=== PATIENT | female | born 1955 | race Caucasian/White ===

== ENCOUNTER 2017-05-19 23:34 | Inpatient (IN) | payer MEDICARE ==
--- NOTE | 2017-05-19 23:56 | ED ---
General Adult HPI - General Chief complaint: Shortness of Breath Stated complaint: SOB Time Seen by Provider: 05/19/17 23:42 Source: patient, EMS, RN notes reviewed, old records reviewed Mode of arrival: EMS Limitations: no limitations - History of Present Illness Initial comments: Patient is a pleasant 61-year-old female presenting to the emergency department as a transfer from [facility]. Patient originally presented for difficulty in breathing. Patient states symptoms have been present for quite a while however progressively getting worse. Patient did question if she was developing fever. Dyspnea does worsen with exertion. No black or bloody bowel movements. Patient has been fatigued. No chest pain. Patient was diagnosed with pneumonia. Patient transferred for higher level of care. - Related Data Home Medications Medication Instructions Recorded Confirmed ALPRAZolam [Xanax] 1 mg PO Q8HR 06/15/14 06/16/14 Atorvastatin [Lipitor] 20 mg PO DAILY 06/15/14 06/16/14 Canagliflozin [Invokana] 100 mg PO DAILY 06/15/14 06/16/14 Escitalopram [Lexapro] 20 mg PO DAILY 06/15/14 06/16/14 amLODIPine [Norvasc] 5 mg PO DAILY 06/15/14 06/16/14 metFORMIN HCL [Glucophage] 850 mg PO TID 06/15/14 06/16/14 Aspirin 325 mg PO DAILY 06/16/14 06/16/14 Calcium Polycarbophil [Fibercon] 1,250 mg PO TID 06/16/14 06/16/14 Fluticasone Propionate [Flonase 1 spray EA NOSTRIL DAILY 06/16/14 06/16/14 Allergy Relief] Previous Rx's Medication Instructions Recorded HYDROcodone/APAP 5-325MG [Berk[place] 2 each PO Q6HR PRN #30 tab 06/19/14 5-325] Allergies Allergy/AdvReac Type Severity Reaction Status Date / Time Penicillins Allergy Swelling Verified 06/16/14 12:39 Review of Systems ROS Statement: Those systems with pertinent positive or pertinent negative responses have been documented in the HPI. ROS Other: All systems not noted in ROS Statement are negative. Constitutional: Reports: fever Eyes: Denies: eye pain ENT: Denies: ear pain Respiratory: Reports: dyspnea Cardiovascular: Denies: chest pain Endocrine: Reports: fatigue Gastrointestinal: Denies: vomiting Genitourinary: Denies: hematuria Musculoskeletal: Denies: back pain Skin: Denies: rash Neurological: Denies: headache Past Medical History Past Medical History: Diabetes Mellitus, Hyperlipidemia, Hypertension, Skin Disorder, Sleep Apnea/CPAP/BIPAP Additional Past Medical History / Comment(s): Melanoma on back of leg History of Any Multi-Drug Resistant Organisms: None Reported Past Surgical History: Appendectomy, Bowel Resection, Hysterectomy Additional Past Surgical History / Comment(s): Melanoma removed back of leg Past Psychological History: Anxiety, Depression Smoking Status: Current every day smoker Past Alcohol Use History: None Reported Past Drug Use History: None Reported - Past Family History Father Family Medical History: Cancer, Diabetes Mellitus, Hypertension Additional Family Medical History / Comment(s): Pancreatic Cancer, Sister(s) Additional Family Medical History / Comment(s): [place] at 60 General Exam Limitations: no limitations General appearance: alert, in no apparent distress Head exam: Present: atraumatic Eye exam: Present: normal appearance, PERRL ENT exam: Present: normal oropharynx Neck exam: Present: normal inspection Respiratory exam: Present: rales Cardiovascular Exam: Present: regular rate, normal rhythm GI/Abdominal exam: Present: soft. Absent: tenderness Extremities exam: Present: normal inspection Neurological exam: Present: alert Psychiatric exam: Present: normal affect, normal mood Skin exam: Present: normal color Course Vital Signs 05/19/17 23:37 Temperature 100.8 F H Pulse Rate 82 Respiratory 18 Rate Blood Pressure 158/73 O2 Sat by Pulse 94 L Oximetry - Reevaluation(s) Reevaluation #1: 05/19/17 23:49 Lactic acid was elevated at 3.3. Influenza was negative. Hemoccult was reported as negative. Chart and EKG were reviewed. Computed tomography scan of the chest shows no pulmonary embolism. There was concern for congestive heart failure and pneumonia. Patient didn't receive one unit of packed red blood cells. Patient reportedly did receive Rocephin and Zithromax on ER physician chart as well as Lasix. Heparin held secondary to anemia. Patient did meet criteria for severe sepsis prior to arrival. Lactic acid and IV antibiotics have arty been started. Blood cultures were also reportedly obtained. 05/19/17 23:55 Dr. Bernard has been paged for admission. 05/20/17 00:05 Case was discussed with Dr. Bernard, who will admit for hospital call. Consults will be placed for Dr. Haynes, Dr. Stover, and cardiology. 05/20/17 00:10 Is unclear at this time how much fluid patient has received. Patient did have a unit of blood and does have an IV bag hanging. Patient is unclear if she had IV fluids previous to this. Patient did meet sepsis prior to arrival. Patient has stable blood pressure and appears clinically stable at this time. It is not felt to be zimmer to provide further bolus at this time with diagnosis of CHF/pulmonary edema and patient already receiving some fluids prior to arrival. EKG Findings - EKG Comments: EKG Findings:: Normal sinus rhythm 78. WA 148. QRS 76. QT 420. QTc 478. Normal axis. Normal QRS. No acute ST change. Medical Decision Making - Lab Data Result diagrams: 05/20/17 00:14 05/20/17 00:14 - Radiology Data Radiology results: image reviewed (Chest x-ray shows cardiomegaly. Probable minimal left upper lobe infiltrate. Mild heart failure is possible. Abdominal x-ray shows nonacute abdomen.) Critical Care Time Critical Care Time: Yes Total Critical Care Time: 33 Disposition Clinical Impression: Anemia, Pneumonia, Severe sepsis, CHF (congestive heart failure) Disposition: ADMITTED IP TO THIS HOSP Condition: Serious
[2017-05-20 00:34] LABS: ALT 20 U/L (9-52); AST 18 U/L (14-36); Albumin 4.3 g/dL (3.5-5.0); Alkaline Phosphatase 63 U/L (38-126); Anion Gap 16 mmol/L; Blood Urea Nitrogen 7 mg/dL (7-17); Calcium 9.1 mg/dL (8.4-10.2); Carbon Dioxide 22 mmol/L (22-30); Chloride 103 mmol/L (98-107); Glucose 228 mg/dL (74-99); Potassium 3.8 mmol/L (3.5-5.1); Sodium 141 mmol/L (137-145); Total Bilirubin 0.8 mg/dL (0.2-1.3); Total Protein 7.3 g/dL (6.3-8.2)
[2017-05-20 00:36] LABS: Anisocytosis Moderate; Basophils # (A) 0.1 k/uL (0-0.2); Basophils % (A) 1 %; Eosinophils # (A) 0.1 k/uL (0-0.7); Eosinophils % (A) 0 %; HCT 26.7 % (34.0-46.0); Hypochromasia Marked; Lymphocytes # (A) 0.5 k/uL (1.0-4.8); Lymphocytes % (A) 4 %; MCH 16.7 pg (25.0-35.0); MCHC 25.8 g/dL (31.0-37.0); MCV 64.6 fL (80.0-100.0); Mean Platelet Volume 6.5; Microcytosis Marked; Monocytes # (A) 0.3 k/uL (0-1.0); Monocytes % (A) 2 %; Neutrophils # (A) 13.4 k/uL (1.3-7.7); Neutrophils % (A) 93 %; Platelet Count 401 k/uL (150-450); Poikilocytosis Moderate; RBC 4.13 m/uL (3.80-5.40); RDW 20.2 % (11.5-15.5); WBC 14.5 k/uL (3.8-10.6)
[2017-05-20 00:37] LABS: INR 1.1 (<1.2); Prothrombin Time 10.9 sec (9.0-12.0)
[2017-05-20 00:47] LABS: HGB 6.9 gm/dL (11.4-16.0)
[2017-05-20 00:51] LABS: Partial Thromboplastin Time 21.2 sec (22.0-30.0)
--- NOTE | 2017-05-20 00:51 | XR ---
EXAMINATION TYPE: XR abdomen 1V DATE OF EXAM: 05/20/2017 COMPARISON: NONE HISTORY: Abdominal pain TECHNIQUE: 2 views FINDINGS: There is no sign of intestinal obstruction or pneumoperitoneum. Fecal pattern is normal. Jailene ng bases are clear. There are no pathologic calcifications over the kidneys. Bony structures appear i ntact. IMPRESSION: Nonacute abdomen.
--- NOTE | 2017-05-20 00:54 | XR ---
EXAMINATION TYPE: XR chest 1V portable DATE OF EXAM: 05/20/2017 COMPARISON: NONE HISTORY: Short of breath TECHNIQUE: Single frontal view of the chest is obtained. FINDINGS: AP view shows an enlarged heart. There is some pulmonary vascular congestion. There is no definite pleural effusion. Thoracic aorta is atheromatous. There are chest leads. IMPRESSION: Cardiomegaly. There is probably a minimal left upper lobe infiltrate.. Exam limited due to patient size. Mild heart failure is possible.
[2017-05-20 00:57] LABS: Creatine Kinase MB 0.6 ng/mL (0.0-2.4); Troponin I 0.02 ng/mL (0.000-0.034)
[2017-05-20] MEDS: cefTRIAXone IN SWFI 1,000 MG/10 ML SYRINGE IVP SCH (01:25)
[2017-05-20] MEDS: PANTOPRAZOLE 40 MG/10 ML VIAL IV SCH ×2 (01:25→10:27)
[2017-05-20] MEDS ORDERED: ALPRAZolam 0.5 MG TAB PO STA (04:37)
[2017-05-20] MEDS ORDERED: IPRATROPIUM-ALBUTEROL 3 ML NEB INHALATION STA (04:50)
[2017-05-20 07:53] LABS: Anisocytosis Moderate; Basophils # (A) 0.1 k/uL (0-0.2); Basophils % (A) 0 %; Eosinophils % (A) 0 %; HCT 28.8 % (34.0-46.0); HGB 7.6 gm/dL (11.4-16.0); Hypochromasia Marked; Lymphocytes # (A) 0.6 k/uL (1.0-4.8); Lymphocytes % (A) 5 %; MCH 17.9 pg (25.0-35.0); MCHC 26.4 g/dL (31.0-37.0); MCV 67.6 fL (80.0-100.0); Mean Platelet Volume 7.3; Microcytosis Marked; Monocytes # (A) 0.2 k/uL (0-1.0); Monocytes % (A) 2 %; Neutrophils # (A) 11.4 k/uL (1.3-7.7); Neutrophils % (A) 93 %; Platelet Count 409 k/uL (150-450); Poikilocytosis Marked; RBC 4.26 m/uL (3.80-5.40); RDW 20.3 % (11.5-15.5); WBC 12.2 k/uL (3.8-10.6)
[2017-05-20 08:27] LABS: Ovalocytes Present; Polychromasia Present
[2017-05-20] MEDS ORDERED: AZITHROMYCIN 500 MG in SODIUM CHLORIDE 0.9% 250 ML IVPB SCH (09:00)
[2017-05-20] MEDS ORDERED: IPRATROPIUM-ALBUTEROL 3 ML NEB INHALATION PRN (13:19)
--- NOTE | 2017-05-20 13:19 | P.CNPUL ---
History of Present Illness Consult date: 05/20/17 Requesting physician: Bruno Bernard Reason for consult: dyspnea, abnormal CXR/CT Chief complaint: Shortness of breath, chest pain History of present illness: This is a very pleasant 61-year-old female patient who follows with Dr. Hawk as her primary care physician. She has a history of diabetes mellitus, hypertension, hyperlipidemia, obesity, anxiety, depression, obstructive sleep apnea, gastroesophageal reflux disease. She also has a 50+ year pack per day smoking history. She has not been seen by a barrel finisher in the past. No home oxygen or inhalers. She presented to [facility] emergency room last evening with complaints of a 2 week. Of shortness of breath, cough and congestion. She also developed chest pain 2 hours prior to her arrival. It was substernal anterior chest discomfort that she rated between a 5 and 8 out of 10. She was also found to be hypoxic with a room air oxygen saturation of 85 %. She was quite hypertensive on admission and there is evidence of fluid volume overload. She was initiated on a nitroglycerin drip, given aspirin and bronchodilators and IV Solu-Medrol. She was also found to be severely anemic with a hemoglobin of 5.5 and was started on packed red blood cell transfusion. Stool for occult blood was negative. There was concern regarding endocardial injury based on her EKG no heparin was started because of her anemia. A CT angiogram was performed which revealed evidence of the left lung consolidation. Negative for pulmonary embolism. Based on these multiple issues she was transferred here to the emergency room. She is seen today in consultation while in the ER. She is awake and alert in no acute distress. She states she is feeling much better after her blood transfusions, Xanax and a breathing treatment. She is currently maintaining good O2 saturations up to 99% on 2 L/m per nasal cannula. She's afebrile. Hemodynamically stable. No tachycardia, no tachypnea. Blood pressure 122/59. White count 12.2. Hemoglobin 7.6. Lactic acid improved from 2.2-1.5. ProBNP 547. Troponin 0.020. She has been initiated on ceftriaxone and azithromycin. Review of Systems Constitutional: Reports fatigue, Reports malaise, Reports weakness Eyes: denies blurred vision, denies decreased vision Ears: deny: decreased hearing Ears, nose, mouth and throat: Denies headache, Denies sore throat Cardiovascular: Reports chest pain, Reports dyspnea on exertion, Reports high blood pressure, Reports shortness of breath Respiratory: Reports congestion, Reports cough, Reports sleep apnea Gastrointestinal: Denies abdominal pain, Denies diarrhea, Denies nausea, Denies vomiting Genitourinary: Denies dysuria, Denies hematuria Musculoskeletal: Denies myalgias Integumentary: Denies pruritus, Denies rash Neurological: Denies numbness, Denies weakness Psychiatric: Reports anxiety, Reports anxiety attacks, Reports depression Endocrine: Denies fatigue, Denies weight change Past Medical History Past Medical History: Cancer, Diabetes Mellitus, Hyperlipidemia, Hypertension, Skin Disorder, Sleep Apnea/CPAP/BIPAP Additional Past Medical History / Comment(s): IDDM type II, RUCHI with Cpap, sepsis 2ndary to necrotic bowel, melanoma on back of leg removed, normocytic anemia per past medical record but pt does not recall. History of Any Multi-Drug Resistant Organisms: None Reported Past Surgical History: Appendectomy, Bowel Resection, Hysterectomy Additional Past Surgical History / Comment(s): Melanoma removed back of leg, exploratory with small bowel resection due to obstruction/necrosis with lysis of adhesions/appendectomy, attempted colonoscopy. Past Anesthesia/Blood Transfusion Reactions: No Reported Reaction Additional Past Anesthesia/Blood Transfusion Reaction / Comment(s): Pt received blood in ER without reaction. Smoking Status: Current every day smoker - Past Family History Father Family Medical History: Cancer, Diabetes Mellitus, Hypertension Additional Family Medical History / Comment(s): Pancreatic Cancer, Sister(s) Additional Family Medical History / Comment(s): [place] at 60 Medications and Allergies Home Medications Medication Instructions Recorded Confirmed Type Atorvastatin [Lipitor] 20 mg PO DAILY 06/15/14 05/20/17 History Escitalopram [Lexapro] 20 mg PO DAILY 06/15/14 05/20/17 History amLODIPine [Norvasc] 5 mg PO DAILY 06/15/14 05/20/17 History metFORMIN HCL [Glucophage] 850 mg PO TID 06/15/14 05/20/17 History Aspirin 325 mg PO HS 06/16/14 05/20/17 History ALPRAZolam [Xanax] 0.5 mg PO BID 05/20/17 05/20/17 History Cinnamon Bark [Cinnamon] 1,000 mg PO BID 05/20/17 05/20/17 History Gabapentin [Neurontin] 100 mg PO TID 05/20/17 05/20/17 History Omeprazole 20 mg PO HS 05/20/17 05/20/17 History sitaGLIPtin [Januvia] 100 mg PO W/SUPPER 05/20/17 05/20/17 History Allergies Allergy/AdvReac Type Severity Reaction Status Date / Time Penicillins Allergy Swelling Verified 05/20/17 07:48 Physical Exam Vitals: Vital Signs Temp Pulse Resp BP Pulse Ox 05/20/17 11:58 98.9 F 72 18 122/59 99 05/20/17 09:53 81 17 149/65 99 05/20/17 08:02 75 18 156/70 99 05/20/17 06:00 75 18 162/73 97 05/20/17 05:39 98.3 F 73 18 145/67 97 05/20/17 05:15 79 05/20/17 05:00 85 20 169/74 95 05/20/17 04:00 83 18 136/61 97 05/20/17 02:53 98.4 F 76 18 142/82 97 05/20/17 02:51 98.2 F 75 18 157/53 05/20/17 02:23 98.4 F 79 18 172/74 96 05/20/17 02:13 98.0 F 77 18 150/67 96 05/20/17 02:04 98.1 F 77 18 158/69 96 05/20/17 02:00 82 18 162/78 98 05/20/17 01:00 80 18 160/70 97 05/20/17 00:44 79 18 156/70 96 05/19/17 23:44 78 18 165/72 97 05/19/17 23:37 100.8 F H 82 18 158/73 94 L Intake and Output 05/19/17 05/20/17 05/20/17 22:59 06:59 14:59 Intake Total 0 Balance 0 Intake: Blood Product 0 Rc As-3 Unit 0 [id number] Other: Weight 104.326 kg GENERAL EXAM: Alert, comfortable in no apparent distress. HEAD: Normocephalic. EYES: Normal reaction of pupils, equal size. NOSE: Clear with pink turbinates. THROAT: No erythema or exudates. NECK: No masses, no JVD. CHEST: No chest wall deformity. LUNGS: Equal air entry with crackles in the left lung. Diminished.. CVS: S1 and S2 normal with no audible murmur, regular rhythm. ABDOMEN: No hepatosplenomegaly, normal bowel sounds, no guarding or rigidity. SPINE: No scoliosis or deformity SKIN: No rashes CENTRAL NERVOUS SYSTEM: No focal deficits, tone is normal in all 4 extremities. EXTREMITIES: There is no peripheral edema. No clubbing, no cyanosis. Peripheral pulses are intact. Results - Laboratory Findings CBC and BMP: 05/20/17 06:34 05/20/17 00:14 PT/INR, D-dimer PT 10.9 sec (9.0-12.0) 05/20/17 00:14 INR 1.1 (<1.2) 05/20/17 00:14 Abnormal lab findings: Abnormal Labs 05/20/17 05/20/17 05/20/17 00:14 00:14 00:14 WBC 14.5 H Hgb 6.9 L* Hct 26.7 L MCV 64.6 L MCH 16.7 L MCHC 25.8 L RDW 20.2 H Neutrophils # 13.4 H Lymphocytes # 0.5 L APTT Creatinine 0.50 L Glucose 228 H Plasma Lactic Acid Luisito 2.2 H* Crossmatch 05/20/17 05/20/17 05/20/17 00:14 00:14 06:34 WBC 12.2 H Hgb 7.6 L Hct 28.8 L MCV 67.6 L MCH 17.9 L MCHC 26.4 L RDW 20.3 H Neutrophils # 11.4 H Lymphocytes # 0.6 L APTT 21.2 L Creatinine Glucose Plasma Lactic Acid Luisito Crossmatch See Detail - Diagnostic Findings Chest x-ray: image reviewed CT scan - chest: image reviewed Assessment and Plan Assessment: Impression: #1 Acute hypoxic respiratory failure secondary to an acute community-acquired pneumonia. #2 Acute anemia of unclear etiology, stool for occult blood negative, status post packed red blood cell transfusion, current hemoglobin 7.6. #3 Chest pain of unclear etiology possibly related to anemia. #4 Chronic and ongoing tobacco dependence, suspect some component of untreated COPD. #5 Diabetes mellitus. #6 Hypertension. #7 Hyperlipidemia. #8 Obesity. #9 Lactic acidosis, recovered. #10 Anxiety/depression. Plan: The patient was seen and evaluated by Dr. Stover. Her chest x-ray, CAT scan and labs were all reviewed. We'll go ahead and treat her for an acute community -acquired pneumonia the left lung. Continue ceftriaxone and azithromycin. Will add DuoNeb inhalations 4 times a day when necessary. Add Pulmicort inhalations twice a day. IV Solu-Medrol. She is educated regarding the importance of complete smoking cessation. NicoDerm patch will be offered. Cardiology consult is pending. Infectious disease consult is pending. We will continue to follow and make further recommendations based on her clinical status. I, the cosigning physician, performed a history & physical examination of the patient. Lungs sounds have few scattered rhonchi more so on the left. Faint end expiratory wheeze.. Maintaining good O2 saturations in the 90s on 2 L/m per nasal cannula.. I discussed the assessment and plan of care with my nurse practitioner, Sanjuana Nieto. I attest to the above note as dictated by her. Time with Patient: Greater than 30
--- NOTE | 2017-05-20 13:58 | P.CRDCN ---
History of Present Illness Consult date: 05/20/17 History of present illness: This is a 61-year-old female with history of diabetes, hypertension, hyperlipidemia who went to [facility] for evaluation of symptoms of chest pain and also shortness of breath. She claimed that she has been short of breath for several days prior to admission. She also was noticing pedal edema. She was also complaining of cough and congestion. She was found to be hypoxic. She was treated with with aspirin, bronchodilators, and also IV Solu- Medrol. She also complained of some chest tightness and pain in the shoulder areas in the back. She was subsequently transferred to [facility]. EKG here did not reveal any acute changes. Chest x-ray showed possible infiltrate. She is currently being treated for possible pneumonia. She was also found to be extremely anemic with hemoglobin of 5 g. She received blood transfusion. She is feeling better today. Her proBNP is within normal limits. one Troponin value within normal limits. I'm going to get an echocardiogram to assess LV function. I will also do couple of more troponin values. Further recommendations depend upon the clinical course. If the troponins are normal and her LV and if LV function is normal and if patient remains stable without any recurrence of chest discomfort, patient could be discharged home. Outpatient stress test will be considered later on. Review of Systems As per the chart Past Medical History Past Medical History: Cancer, Diabetes Mellitus, Hyperlipidemia, Hypertension, Skin Disorder, Sleep Apnea/CPAP/BIPAP Additional Past Medical History / Comment(s): IDDM type II, RUCHI with Cpap, sepsis 2ndary to necrotic bowel, melanoma on back of leg removed, normocytic anemia per past medical record but pt does not recall. History of Any Multi-Drug Resistant Organisms: None Reported Past Surgical History: Appendectomy, Bowel Resection, Hysterectomy Additional Past Surgical History / Comment(s): Melanoma removed back of leg, exploratory with small bowel resection due to obstruction/necrosis with lysis of adhesions/appendectomy, attempted colonoscopy. Past Anesthesia/Blood Transfusion Reactions: No Reported Reaction Additional Past Anesthesia/Blood Transfusion Reaction / Comment(s): Pt received blood in ER without reaction. Smoking Status: Current every day smoker - Past Family History Father Family Medical History: Cancer, Diabetes Mellitus, Hypertension Additional Family Medical History / Comment(s): Pancreatic Cancer, Sister(s) Additional Family Medical History / Comment(s): [place] at 60 Medications and Allergies Home Medications Medication Instructions Recorded Confirmed Type Atorvastatin [Lipitor] 20 mg PO DAILY 06/15/14 05/20/17 History Escitalopram [Lexapro] 20 mg PO DAILY 06/15/14 05/20/17 History amLODIPine [Norvasc] 5 mg PO DAILY 06/15/14 05/20/17 History metFORMIN HCL [Glucophage] 850 mg PO TID 06/15/14 05/20/17 History Aspirin 325 mg PO HS 06/16/14 05/20/17 History ALPRAZolam [Xanax] 0.5 mg PO BID 05/20/17 05/20/17 History Cinnamon Bark [Cinnamon] 1,000 mg PO BID 05/20/17 05/20/17 History Gabapentin [Neurontin] 100 mg PO TID 05/20/17 05/20/17 History Omeprazole 20 mg PO HS 05/20/17 05/20/17 History sitaGLIPtin [Januvia] 100 mg PO W/SUPPER 05/20/17 05/20/17 History Allergies Allergy/AdvReac Type Severity Reaction Status Date / Time Penicillins Allergy Swelling Verified 05/20/17 07:48 Physical Exam Vitals: Vital Signs Temp Pulse Resp BP Pulse Ox 05/20/17 11:58 98.9 F 72 18 122/59 99 05/20/17 09:53 81 17 149/65 99 05/20/17 08:02 75 18 156/70 99 05/20/17 06:00 75 18 162/73 97 05/20/17 05:39 98.3 F 73 18 145/67 97 05/20/17 05:15 79 05/20/17 05:00 85 20 169/74 95 05/20/17 04:00 83 18 136/61 97 05/20/17 02:53 98.4 F 76 18 142/82 97 05/20/17 02:51 98.2 F 75 18 157/53 05/20/17 02:23 98.4 F 79 18 172/74 96 05/20/17 02:13 98.0 F 77 18 150/67 96 05/20/17 02:04 98.1 F 77 18 158/69 96 05/20/17 02:00 82 18 162/78 98 05/20/17 01:00 80 18 160/70 97 05/20/17 00:44 79 18 156/70 96 05/19/17 23:44 78 18 165/72 97 05/19/17 23:37 100.8 F H 82 18 158/73 94 L Intake and Output 05/19/17 05/20/17 05/20/17 22:59 06:59 14:59 Intake Total 0 Balance 0 Intake: Blood Product 0 Rc As-3 Unit 0 [id number] Other: Weight 104.326 kg GENERAL EXAM: Patient is alert and oriented and doesn't appear to be in any acute distress HEENT: Normocephalic. Normal reaction of pupils, equal size, normal range of extraocular motion. No erythema or exudates in the throat. NECK: No masses, no nuchal rigidity. CHEST: No chest wall deformity. LUNGS: Diminished air exchange but no rhonchi or wheezing HEART: S1 and S2 normal with no audible mumurs or gallops. Distant heart sounds ABDOMEN: No hepatosplenomegaly, normal bowel sounds, no guarding or rigidity. SKIN: No rashes CENTRAL NERVOUS SYSTEM: No focal deficits. EXTREMITIES: Mild edema of the legs Results 05/20/17 06:34 05/20/17 00:14 Cardiac Enzymes 05/20/17 05/20/17 Range/Units 00:14 00:14 AST 18 (14-36) U/L CK-MB (CK-2) 0.6 (0.0-2.4) ng/mL Troponin I 0.020 (0.000-0.034) ng/mL Coagulation 05/20/17 Range/Units 00:14 PT 10.9 (9.0-12.0) sec APTT 21.2 L (22.0-30.0) sec CBC 05/20/17 05/20/17 Range/Units 00:14 06:34 WBC 14.5 H 12.2 H (3.8-10.6) k/uL RBC 4.13 4.26 (3.80-5.40) m/uL Hgb 6.9 L* 7.6 L (11.4-16.0) gm/dL Hct 26.7 L 28.8 L (34.0-46.0) % Plt Count 401 409 (150-450) k/uL Comprehensive Metabolic Panel 05/20/17 Range/Units 00:14 Sodium 141 (137-145) mmol/L Potassium 3.8 (3.5-5.1) mmol/L Chloride 103 (98-107) mmol/L Carbon Dioxide 22 (22-30) mmol/L BUN 7 (7-17) mg/dL Creatinine 0.50 L (0.52-1.04) mg/dL Glucose 228 H (74-99) mg/dL Calcium 9.1 (8.4-10.2) mg/dL AST 18 (14-36) U/L ALT 20 (9-52) U/L Alkaline Phosphatase 63 (38-126) U/L Total Protein 7.3 (6.3-8.2) g/dL Albumin 4.3 (3.5-5.0) g/dL Current Medications Generic Name Dose Route Start Last Admin Trade Name Freq PRN Reason Stop Dose Admin Albuterol/Ipratropium 3 ml 05/20/17 16:00 Duoneb 0.5 Mg-3 Mg/3 Ml Soln INHALATION RT-QID TIFFANY Albuterol/Ipratropium 3 ml 05/20/17 13:19 Duoneb 0.5 Mg-3 Mg/3 Ml Soln INHALATION RT-Q2H PRN Shortness Of Breath Or Wheezing Budesonide 1 mg 05/20/17 20:00 Pulmicort INHALATION RT-BID TIFFANY Ceftriaxone Sodium 1,000 mg 05/20/17 00:30 05/20/17 01:25 Rocephin IVP 1,000 mg Q24H TIFFANY Administration Azithromycin 500 mg/ Sodium 250 mls @ 125 mls/hr 05/20/17 09:00 05/20/17 10: 26 Chloride IVPB 125 mls/hr DAILY TIFFANY Administration Methylprednisolone Sodium Succinate 40 mg 05/20/17 16:00 Solu-Medrol IV Q8HR TIFFANY Nicotine 1 patch 05/20/17 13:30 Habitrol 14mg/24hr Patch TRANSDERM DAILY TIFFANY Pantoprazole Sodium 40 mg 05/19/17 23:45 05/20/17 10:27 Protonix IV 40 mg DAILY TIFFANY Administration Intake and Output 05/19/17 05/20/17 05/20/17 22:59 06:59 14:59 Intake Total 0 Balance 0 Intake: Blood Product 0 Rc As-3 Unit 0 [id number] Other: Weight 104.326 kg 02/16/18 06:34 05/20/17 00:14 EKG Interpretations (text) Sinus rhythm Assessment and Plan (1) Severe anemia Current Visit: Yes Status: Acute Code(s): D64.9 - ANEMIA, UNSPECIFIED SNOMED Code(s): 966017641 (2) Dyspnea Current Visit: Yes Status: Acute Code(s): R06.00 - DYSPNEA, UNSPECIFIED SNOMED Code(s): 505619779 (3) Chest pain Current Visit: Yes Status: Acute Code(s): R07.9 - CHEST PAIN, UNSPECIFIED SNOMED Code(s): 62196465 (4) Community acquired pneumonia Current Visit: Yes Status: Acute Code(s): J18.9 - PNEUMONIA, UNSPECIFIED ORGANISM SNOMED Code(s): 873193219 Plan: Continue current medical therapy. Get an echocardiogram. Follow 2 more troponin values. Further recommendations will depend upon the clinical course, results of the tests.
[2017-05-20] MEDS: IPRATROPIUM-ALBUTEROL 3 ML NEB INHALATION SCH ×2 (15:27→20:50)
[2017-05-20] MEDS: NICOTINE 14MG/24HR PATCH TRANSDERM SCH (16:43)
[2017-05-20] MEDS: GABAPENTIN 100 MG CAP PO SCH ×2 (16:52→21:19)
[2017-05-20] MEDS: methylPREDNISolone SOD SUCCI 40 MG/ML 1 ML VIAL IV SCH ×2 (16:52→23:27)
[2017-05-20 16:53] LABS: Glucose,Whole Blood 308 mg/dL (75-99)
--- NOTE | 2017-05-20 17:46 | PN ---
PROGRESS NOTE DATE OF SERVICE: 05/20/2017. CHIEF COMPLAINT: Shortness of breath and anemia. HISTORY OF PRESENT ILLNESS: This lady is stable and is still waiting for a bed to go upstairs. She has had no fever or chills. PHYSICAL EXAM: She remains very pale. Chest is clear and cardiac exam is normal. The abdomen is soft, nontender. IMPRESSION: 1. Anemia. 2. Diabetes. 3. Hypertension. PLAN: We will follow her hemoglobin and continue workup while treating her left upper lobe pneumonia. MMODL / IJN: [id number] /
--- NOTE | 2017-05-20 18:01 | HP ---
HISTORY AND PHYSICAL CHIEF COMPLAINT: Shortness of breath and possible sepsis. HISTORY OF PRESENT ILLNESS: This is the first admission for this 61-year-old white female. She was transferred from [facility] with the thought that she had congestive heart failure because of shortness of breath. However, she was found to have a hemoglobin of 5. There is also suggestion of pneumonitis and possible sepsis. REVIEW OF SYSTEMS: She had no headaches, neurologic problems, chest pain, cough, shortness of breath, heart disease, murmurs, rheumatic fever, angina, infarctions, orthopnea, PND, abdominal pain, nausea, vomiting, hematemesis, melena, hematochezia, colitis, hepatitis, cirrhosis, etc. She has had no hematuria, frequency, urgency and dysuria, etc. She does have history of diabetes. Past medical history, family history personal and social history reveal that she is ALLERGIC TO PENICILLIN. Surgically, she has had surgery for an ischemic bowel and a hysterectomy. Laboratory studies suggested that there may be a small left upper lobe infiltrate on x-ray. Second hemoglobin was 6.9. White count was 14,500 and her lactate was 2.2. She had a blood sugar of 228. Her medications included: 1. Sitagliptin. 2. Prilosec. 3. Metformin. 4. Neurontin. 5. Lexapro. 6. Lipitor. 7. Aspirin. 8. Xanax and. 9. Norvasc. PHYSICAL EXAMINATION: Blood pressure is 162/73, the pulse 75, respirations of 18 and temperature 98.3. In general, she appeared to be very pale and in no acute distress. Skin was dry and lymph nodes were not enlarged. Head, ears, eyes, nose, mouth, and throat were normal. Neck veins were not distended. Thyroid was not enlarged. Chest is clear. Cardiac demonstrates sinus rhythm and no murmurs or extra sounds. The abdomen is soft and nontender without visceromegaly or masses. Extremities are normal and neurologically she is intact. She is admitted to the hospital with the diagnoses of: 1. Shortness of breath. 2. Anemia, etiology unknown. 3. Hypertension. 4. Hyperlipidemia. 5. Type 2 non-insulin dependent diabetes mellitus. 6. Left upper lobe pneumonia. 7. Possible sepsis. PLAN: 1. Bed rest. 2. IV fluids. 3. Appropriate cultures. 4. Antibiotics. 5. Look for source of anemia. MMODL / IJN: [id number] /
[2017-05-20] MEDS: LINAGLIPTIN 5 MG TABLET PO SCH (18:10)
[2017-05-20] MEDS: ACETAMINOPHEN TAB 325 MG TAB PO PRN (18:10)
[2017-05-20] MEDS: INSULIN ASPART 100 UNIT/ML 1 ML 10 ML VIAL SQ SCH ×2 (18:10→22:08)
[2017-05-20] MEDS: BUDESONIDE 1 MG/2 ML NEBU INHALATION SCH (20:50)
[2017-05-20] MEDS: PANTOPRAZOLE 40 MG TABLET PO SCH (21:19)
[2017-05-20 21:28] LABS: Glucose,Whole Blood 329 mg/dL (75-99)
--- NOTE | 2017-05-20 21:56 | P.CONS ---
History of Present Illness - Reason for Consult Consult date: 05/20/17 - Chief Complaint Shortness of breath and chest pain and scapular pain - History of Present Illness 61-year-old female presented to her local emergency center with a history of increasing shortness of breath for several days. She developed a marked change in that she became much more short of breath and started to develop significant pain across her scapula bilaterally. Because she was feeling so poorly she presented to her local emergency center. She was noticed evidence of pneumonia, there was concerns to pulmonary embolus as well as to myocardial infarction and consultation was transferred to the emergency center here [facility] for further intervention. With concerns pneumonia the infectious diseases consultation was requested. She's to be seen by pulmonary critical care as well as cardiology. She this time relates since coming to the emergency center receiving a breathing treatment, oxygen therapy, and some pain medication she's feeling considerably better. She's been able to eat her entire lunch without difficulty such as nausea or emesis. She is able to eat without profound shortness of breath. She does relate sitting upright does have her feeding less short of breath. At home she was having some orthopnea and she was very short of breath if she walked 4 steps. She denying anterior chest pain but did have the discomfort in her back that went from right to left scapula. It was a pressure burning type pain. Did not radiate to her neck or her arms. She denies that he get nausea or emesis. She's had no fever chills or rigors but has felt very weak and ill has had the market increasing shortness of breath. Review of Systems HEENT:Denies headache or acute visual change. Denies sinus or mouth discomforts. Denies neck stiffness or pain. Denies significant oral cavity pain. Denies difficulty on swallowing. Lungs: As per the HPI increasing shortness of breath she did have cough without sputum production no hemoptysis l Heart was having the scapular chest pain as per the HPI she had no orthopnea but did have dyspnea on exertion Gastrointestinal:Denies nausea, vomiting, diarrhea, constipation, hematemesis, melena, hematochezia. No no significant change of bowel habit noticed. Musculoskeletal: denies significant myalgias or arthralgias. No new joint swelling. Denies new back pain. Skin: Denies new rash or lesions. No new ulcers or wounds are related.. She however does have chronic skin condition in which which she picks at skin Neuro: Denies headache or visual change. Denies any new onset weakness or difficulty with ambulation. Denies falls or seizures. Psychiatric:Denies anxiety or depression. Endocrine: has fatigue and weight gain Past Medical History Past Medical History: Cancer, Diabetes Mellitus, Hyperlipidemia, Hypertension, Skin Disorder, Sleep Apnea/CPAP/BIPAP Additional Past Medical History / Comment(s): IDDM type II, RUCHI with Cpap, sepsis 2ndary to necrotic bowel, melanoma on back of leg removed, normocytic anemia per past medical record but pt does not recall. History of Any Multi-Drug Resistant Organisms: None Reported Past Surgical History: Appendectomy, Bowel Resection, Hysterectomy Additional Past Surgical History / Comment(s): Melanoma removed back of leg, exploratory with small bowel resection due to obstruction/necrosis with lysis of adhesions/appendectomy, attempted colonoscopy. Past Anesthesia/Blood Transfusion Reactions: No Reported Reaction Additional Past Anesthesia/Blood Transfusion Reaction / Comm: Pt received blood in ER without reaction. Additional Psychological History / Comment(s): Lives with and pet dogs. Current tobacco smoker. No alcohol or drug abuse. No experience no international travel Smoking Status: Current every day smoker - Past Family History Father Family Medical History: Cancer, Diabetes Mellitus, Hypertension Additional Family Medical History / Comment(s): Pancreatic Cancer, Sister(s) Additional Family Medical History / Comment(s): PA at 60 Medications and Allergies Home Medications and Allergies Comment(s): Current Medications Acetaminophen (Tylenol Tab) 650 mg PO Q6HR PRN PRN Reason: Fever and/ or Pain Last Admin: 05/20/17 18:10 Dose: 650 mg Albuterol/Ipratropium (Duoneb 0.5 Mg-3 Mg/3 Ml Soln) 3 ml INHALATION RT-QID TIFFANY Last Admin: 05/20/17 20:50 Dose: 3 ml Albuterol/Ipratropium (Duoneb 0.5 Mg-3 Mg/3 Ml Soln) 3 ml INHALATION RT-Q2H PRN PRN Reason: Shortness Of Breath Or Wheezing Amlodipine Besylate (Norvasc) 5 mg PO DAILY [facility] Atorvastatin Calcium (Lipitor) 20 mg PO DAILY [facility] Azithromycin (Zithromax) 500 mg PO DAILY [facility] Budesonide (Pulmicort) 1 mg INHALATION RT-BID TIFFANY Last Admin: 05/20/17 20:50 Dose: 1 mg Buspirone HCl (Buspar) 5 mg PO TID PRN PRN Reason: Agitation or Acute Anxiety Ceftriaxone Sodium (Rocephin) 1,000 mg IVP Q24H [facility] Last Admin: 05/20/17 01:25 Dose: 1,000 mg Escitalopram Oxalate (Lexapro) 20 mg PO DAILY [facility] Gabapentin (Neurontin) 100 mg PO TID [facility] Last Admin: 05/20/17 21:19 Dose: 100 mg Insulin Aspart (Novolog) 0 unit SQ ACHS [facility] PRN Reason: Protocol Last Admin: 05/20/17 18:10 Dose: 8 unit Linagliptin (Tradjenta) 5 mg PO W/SUPPER [facility] Last Admin: 05/20/17 18:10 Dose: 5 mg Methylprednisolone Sodium Succinate (Solu-Medrol) 40 mg IV Q8HR [facility] Last Admin: 05/20/17 16:52 Dose: 40 mg Nicotine (Habitrol 14mg/24hr Patch) 1 patch TRANSDERM DAILY [facility] Last Admin: 05/20/17 16:43 Dose: Not Given Pantoprazole Sodium (Protonix) 40 mg PO HS [facility] Last Admin: 05/20/17 21:19 Dose: 40 mg Home Medications Medication Instructions Recorded Confirmed Type Atorvastatin [Lipitor] 20 mg PO DAILY 06/15/14 05/20/17 History Escitalopram [Lexapro] 20 mg PO DAILY 06/15/14 05/20/17 History amLODIPine [Norvasc] 5 mg PO DAILY 06/15/14 05/20/17 History metFORMIN HCL [Glucophage] 850 mg PO TID 06/15/14 05/20/17 History Aspirin 325 mg PO 06/16/14 05/20/17 History ALPRAZolam [Xanax] 0.5 mg PO BID 05/20/17 05/20/17 History Cinnamon Bark [Cinnamon] 1,000 mg PO BID 05/20/17 05/20/17 History Gabapentin [Neurontin] 100 mg PO TID 05/20/17 05/20/17 History Omeprazole 20 mg PO HS 05/20/17 05/20/17 History sitaGLIPtin [Januvia] 100 mg PO W/SUPPER 05/20/17 05/20/17 History Allergies Allergy/AdvReac Type Severity Reaction Status Date / Time Penicillins Allergy Swelling Verified 05/20/17 07:48 Physical Exam Vitals: Vital Signs Temp Pulse Pulse Resp BP BP Pulse Ox 05/20/17 21:07 76 05/20/17 20:50 75 05/20/17 16:00 98.3 F 79 18 170/80 97 05/20/17 15:37 72 05/20/17 15:27 72 05/20/17 11:58 98.9 F 72 18 122/59 99 05/20/17 09:53 81 17 149/65 99 05/20/17 08:02 75 18 156/70 99 05/20/17 06:00 75 18 162/73 97 05/20/17 05:39 98.3 F 73 18 145/67 97 05/20/17 05:15 79 05/20/17 05:00 85 20 169/74 95 05/20/17 04:00 83 18 136/61 97 05/20/17 02:53 98.4 F 76 18 142/82 97 05/20/17 02:51 98.2 F 75 18 157/53 05/20/17 02:23 98.4 F 79 18 172/74 96 05/20/17 02:13 98.0 F 77 18 150/67 96 05/20/17 02:04 98.1 F 77 18 158/69 96 05/20/17 02:00 82 18 162/78 98 05/20/17 01:00 80 18 160/70 97 05/20/17 00:44 79 18 156/70 96 05/19/17 23:44 78 18 165/72 97 05/19/17 23:37 100.8 F H 82 18 158/73 94 L Intake and Output 05/20/17 05/20/17 05/20/17 06:59 14:59 22:59 Intake Total 0 Balance 0 Intake: Blood Product 0 Rc As-3 Unit 0 [id number] Other: Weight 104.326 kg Pleasant 61-year-old woman who has obesity, the presentation had severe shortness of breath and pain from right to left scapula is feeling better at this time. Does relate feels better when she is sitting up. Was able to-year- old lunch without difficulties HEENT: Anicteric conjunctiva are pink and moist nasal mucosa grossly intact without significant lesions, there is no thrush. Poor dentition Neck: The neck is supple without significant lymphadenopathy or thyromegaly. Lungs: Symmetrical bilateral air entry, scattered wheezes are noted, few crackles at the bases, no saud bronchial sounds no dullness or egophony. Heart: Irregular with an audible S1 and S2 soft S4 There is no significant murmur click or rub, PMI was nondisplaced. Abdomen: Obese, Positive bowel sounds soft and nontender without palpable masses or organomegaly. There was no guarding or rebound. Extremities: The upper extremities have excellent pulses they are symmetric, no significant petechiae or telangiectasia. No splinter hemorrhages were noted. Lower extremities have trace bilateral lower extremity edema, peripheral pulses are 2+ and symmetric, no open ulcers are seen Neuro: Awake alert oriented to person place and time. There are no acute new gross focal sensory motor deficits. Results CBC & Chem 7: 05/20/17 06:34 05/20/17 00:14 Labs: Abnormal Lab Results - Last 24 Hours (Table) 05/20/17 05/20/17 05/20/17 Range/Units 00:14 00:14 00:14 WBC 14.5 H (3.8-10.6) k/uL Hgb 6.9 L* (11.4-16.0) gm/dL Hct 26.7 L (34.0-46.0) % MCV 64.6 L (80.0-100.0) fL MCH 16.7 L (25.0-35.0) pg MCHC 25.8 L (31.0-37.0) g/dL RDW 20.2 H (11.5-15.5) % Neutrophils # 13.4 H (1.3-7.7) k/uL Lymphocytes # 0.5 L (1.0-4.8) k/uL APTT (22.0-30.0) sec Creatinine 0.50 L (0.52-1.04) mg/dL Glucose 228 H (74-99) mg/dL POC Glucose (mg/dL) (75-99) mg/dL Plasma Lactic Acid Luisito 2.2 H* (0.7-2.0) mmol/L Crossmatch 05/20/17 05/20/17 05/20/17 Range/Units 00:14 00:14 06:34 WBC 12.2 H (3.8-10.6) k/uL Hgb 7.6 L (11.4-16.0) gm/dL Hct 28.8 L (34.0-46.0) % MCV 67.6 L (80.0-100.0) fL MCH 17.9 L (25.0-35.0) pg MCHC 26.4 L (31.0-37.0) g/dL RDW 20.3 H (11.5-15.5) % Neutrophils # 11.4 H (1.3-7.7) k/uL Lymphocytes # 0.6 L (1.0-4.8) k/uL APTT 21.2 L (22.0-30.0) sec Creatinine (0.52-1.04) mg/dL Glucose (74-99) mg/dL POC Glucose (mg/dL) (75-99) mg/dL Plasma Lactic Acid Luisito (0.7-2.0) mmol/L Crossmatch See Detail 05/20/17 Range/Units 16:46 WBC (3.8-10.6) k/uL Hgb (11.4-16.0) gm/dL Hct (34.0-46.0) % MCV (80.0-100.0) fL MCH (25.0-35.0) pg MCHC (31.0-37.0) g/dL RDW (11.5-15.5) % Neutrophils # (1.3-7.7) k/uL Lymphocytes # (1.0-4.8) k/uL APTT (22.0-30.0) sec Creatinine (0.52-1.04) mg/dL Glucose (74-99) mg/dL POC Glucose (mg/dL) 308 H (75-99) mg/dL Plasma Lactic Acid Luisito (0.7-2.0) mmol/L Crossmatch Laboratory Results WBC 12.2 k/uL (3.8-10.6) H 05/20/17 06:34 RBC 4.26 m/uL (3.80-5.40) 05/20/17 06:34 Hgb 7.6 gm/dL (11.4-16.0) L 05/20/17 06:34 Hct 28.8 % (34.0-46.0) L 05/20/17 06:34 MCV 67.6 fL (80.0-100.0) L 05/20/17 06:34 MCH 17.9 pg (25.0-35.0) L 05/20/17 06:34 MCHC 26.4 g/dL (31.0-37.0) L 05/20/17 06:34 RDW 20.3 % (11.5-15.5) H 05/20/17 06:34 Plt Count 409 k/uL (150-450) 05/20/17 06:34 Neutrophils % 93 % 05/20/17 06:34 Lymphocytes % 5 % 05/20/17 06:34 Monocytes % 2 % 05/20/17 06:34 Eosinophils % 0 % 05/20/17 06:34 Basophils % 0 % 05/20/17 06:34 Neutrophils # 11.4 k/uL (1.3-7.7) H 05/20/17 06:34 Lymphocytes # 0.6 k/uL (1.0-4.8) L 05/20/17 06:34 Monocytes # 0.2 k/uL (0-1.0) 05/20/17 06:34 Eosinophils # 0.0 k/uL (0-0.7) 05/20/17 06:34 Basophils # 0.1 k/uL (0-0.2) 05/20/17 06:34 Manual Slide Review Performed 05/20/17 06:34 Polychromasia Present 05/20/17 06:34 Hypochromasia Marked 05/20/17 06:34 Poikilocytosis Marked 05/20/17 06:34 Anisocytosis Moderate 05/20/17 06:34 Microcytosis Marked 05/20/17 06:34 Ovalocytes Present 05/20/17 06:34 PT 10.9 sec (9.0-12.0) 05/20/17 00:14 INR 1.1 (<1.2) 05/20/17 00:14 APTT 21.2 sec (22.0-30.0) L 05/20/17 00:14 Sodium 141 mmol/L (137-145) 05/20/17 00:14 Potassium 3.8 mmol/L (3.5-5.1) 05/20/17 00:14 Chloride 103 mmol/L (98-107) 05/20/17 00:14 Carbon Dioxide 22 mmol/L (22-30) 05/20/17 00:14 Anion Gap 16 mmol/L 05/20/17 00:14 BUN 7 mg/dL (7-17) 05/20/17 00:14 Creatinine 0.50 mg/dL (0.52-1.04) L 05/20/17 00:14 Est GFR (MDRD) Af Amer >60 (>60 ml/min/1.73 sqM) 05/20/17 00:14 Est GFR (MDRD) Non-Af >60 (>60 ml/min/1.73 sqM) 05/20/17 00:14 Glucose 228 mg/dL (74-99) H 05/20/17 00:14 POC Glucose (mg/dL) 329 mg/dL (75-99) H 05/20/17 21:27 POC Glu Director Data Management GRACIELA Minnie West 05/20/17 21:27 Lactic Ac Sepsis Rflx Y 05/20/17 00:36 Plasma Lactic Acid Luisito 1.5 mmol/L (0.7-2.0) 05/20/17 06:35 Calcium 9.1 mg/dL (8.4-10.2) 05/20/17 00:14 Total Bilirubin 0.8 mg/dL (0.2-1.3) 05/20/17 00:14 AST 18 U/L (14-36) 05/20/17 00:14 ALT 20 U/L (9-52) 05/20/17 00:14 Alkaline Phosphatase 63 U/L (38-126) 05/20/17 00:14 Total Creatine Kinase 56 U/L (30-135) 05/20/17 00:14 CK-MB (CK-2) 0.6 ng/mL (0.0-2.4) 05/20/17 00:14 CK-MB (CK-2) Rel Index 1.1 05/20/17 00:14 Troponin I 0.020 ng/mL (0.000-0.034) 05/20/17 00:14 NT-Pro-B Natriuret Pep 547 pg/mL 05/20/17 00:14 Total Protein 7.3 g/dL (6.3-8.2) 05/20/17 00:14 Albumin 4.3 g/dL (3.5-5.0) 05/20/17 00:14 Blood Type A Positive 05/20/17 00:14 Blood Type Recheck No 05/20/17 00:14 Antibody Screen NEGATIVE 05/20/17 00:14 Crossmatch See Detail 05/20/17 00:14 Spec Expiration Date 05/23/2017231305/20/17 00:14 Is reported that hemoglobin outside hospital was less than 6. Abdominal x-ray: report reviewed ( left upper lobe infiltrate ) CT scan - chest: report reviewed, other (From outside hospital no evidence of pulmonary embolus) Assessment and Plan (1) Anemia Current Visit: Yes Status: Acute Code(s): D64.9 - ANEMIA, UNSPECIFIED SNOMED Code(s): 353304657 (2) Community acquired pneumonia Narrative/Plan: 61-year-old female presents to Hospital with complaints of markedly increasing shortness of breath, was having shortness of breath for several days but it markedly worsened and when she developed some discomfort from her right to left scapula she presented to her local emergency center was transferred to our hospital for further intervention. She's noticed to have evidence of extensive anemia and now with transfusion is feeling somewhat better. She also has received antibiotic therapy with Rocephin and azithromycin, updraft treatments and oxygen therapy as well as steroid therapy and she's not feeling somewhat better. She will have pulmonary and cardiology evaluations, concerned to acute myocardial event given her symptoms is also being evaluated. She does relate that her is actually hospitalized at the other hospital with pneumonia. Her influenza testing is negative and she believes he also did not have influenza. Further questioning reveals that there is been no travel history, no other new animals in the do not have birds. They do have some grandchildren that had viral illnesses. Constantly viral pneumonia must be considered however check for Legionella and Mycoplasma given the current symptoms. Rocephin and azithromycin will give us adequate coverage for all of these concerns. Cultures are in process and await further data. Evaluation of her significant anemia is also in process. Current Visit: Yes Status: Acute Code(s): J18.9 - PNEUMONIA, UNSPECIFIED ORGANISM SNOMED Code(s): 180896005 (3) Severe sepsis Current Visit: Yes Status: Acute Code(s): A41.9 - SEPSIS, UNSPECIFIED ORGANISM; R65.20 - SEVERE SEPSIS WITHOUT SEPTIC SHOCK SNOMED Code(s): 64564969 (4) Dyspnea Current Visit: Yes Status: Acute Code(s): R06.00 - DYSPNEA, UNSPECIFIED SNOMED Code(s): 075762906
[2017-05-20] MEDS: busPIRone HCl 5 MG TAB PO PRN (22:07)
[2017-05-21] MEDS: cefTRIAXone IN SWFI 1,000 MG/10 ML SYRINGE IVP SCH ×2 (00:03→23:43)
[2017-05-21] MEDS: ACETAMINOPHEN TAB 325 MG TAB PO PRN ×2 (02:31→19:49)
[2017-05-21 02:52] LABS: Hemoglobin A1C 6.5 % (4.0-6.0)
[2017-05-21 06:03] LABS: Glucose,Whole Blood 319 mg/dL (75-99)
[2017-05-21] MEDS: INSULIN ASPART 100 UNIT/ML 1 ML 10 ML VIAL SQ SCH ×4 (06:23→21:27)
[2017-05-21] MEDS: BUDESONIDE 1 MG/2 ML NEBU INHALATION SCH ×2 (07:58→20:04)
[2017-05-21] MEDS: IPRATROPIUM-ALBUTEROL 3 ML NEB INHALATION SCH ×4 (07:59→20:04)
[2017-05-21] MEDS: GABAPENTIN 100 MG CAP PO SCH ×3 (08:39→19:50)
[2017-05-21] MEDS: AZITHROMYCIN 500 MG TAB PO SCH (08:40)
[2017-05-21] MEDS: ESCITALOPRAM 20 MG TAB PO SCH (08:40)
[2017-05-21] MEDS: ATORVASTATIN 20 MG TAB PO SCH (08:40)
[2017-05-21] MEDS: methylPREDNISolone SOD SUCCI 40 MG/ML 1 ML VIAL IV SCH ×3 (08:40→22:56)
[2017-05-21] MEDS: NICOTINE 14MG/24HR PATCH TRANSDERM SCH (08:41)
[2017-05-21] MEDS ORDERED: amLODIPine 5 MG TAB PO SCH (09:00)
[2017-05-21 11:34] LABS: Glucose,Whole Blood 342 mg/dL (75-99)
--- NOTE | 2017-05-21 11:47 | P.PN ---
Subjective Progress Note Date: 05/21/17 Principal diagnosis: Acute hypoxic respiratory failure secondary to an acute acquired community- acquired pneumonia, sepsis without shock. This is a very pleasant 61-year-old female patient who follows with Dr. Hawk as her primary care physician. She has a history of diabetes mellitus, hypertension, hyperlipidemia, obesity, anxiety, depression, obstructive sleep apnea, gastroesophageal reflux disease. She also has a 50+ year pack per day smoking history. She has not been seen by a healthcare risk control consultant in the past. No home oxygen or inhalers. She presented to [facility] emergency room last evening with complaints of a 2 week. Of shortness of breath, cough and congestion. She also developed chest pain 2 hours prior to her arrival. It was substernal anterior chest discomfort that she rated between a 5 and 8 out of 10. She was also found to be hypoxic with a room air oxygen saturation of 85 %. She was quite hypertensive on admission and there is evidence of fluid volume overload. She was initiated on a nitroglycerin drip, given aspirin and bronchodilators and IV Solu-Medrol. She was also found to be severely anemic with a hemoglobin of 5.5 and was started on packed red blood cell transfusion. Stool for occult blood was negative. There was concern regarding endocardial injury based on her EKG no heparin was started because of her anemia. A CT angiogram was performed which revealed evidence of the left lung consolidation. Negative for pulmonary embolism. Based on these multiple issues she was transferred here to the emergency room. She is seen today in consultation while in the ER. She is awake and alert in no acute distress. She states she is feeling much better after her blood transfusions, Xanax and a breathing treatment. She is currently maintaining good O2 saturations up to 99% on 2 L/m per nasal cannula. She's afebrile. Hemodynamically stable. No tachycardia, no tachypnea. Blood pressure 122/59. White count 12.2. Hemoglobin 7.6. Lactic acid improved from 2.2-1.5. ProBNP 547. Troponin 0.020. She has been initiated on ceftriaxone and azithromycin. The patient is seen again today 05/21/2017 in follow-up on the selective care unit. She is awake and alert in no acute distress. She is feeling better today as compared to yesterday. Still with some dyspnea on minimal exertion. Still with some cough and congestion. She has been afebrile. Maintaining good O2 saturations in the mid 90s on 2 L/m per Nasal cannula. She's hemodynamically stable. No tachycardia. No tachypnea. Cultures are pending. Objective - Vital Signs Vital signs: Vital Signs Temp 97 F L 05/21/17 08:00 Pulse 72 05/21/17 08:19 Resp 18 05/21/17 08:00 BP 143/64 05/21/17 08:00 Pulse Ox 94 L 05/21/17 08:00 Intake & Output 05/20/17 05/21/17 05/21/17 18:59 06:59 18:59 Intake Total 358 Balance 358 Weight 104.8 kg Intake: Oral 358 Other: Voiding Method Toilet # Voids 1 1 - Exam GENERAL EXAM: Alert, comfortable in no apparent distress. HEAD: Normocephalic. EYES: Normal reaction of pupils, equal size. NOSE: Clear with pink turbinates. THROAT: No erythema or exudates. NECK: No masses, no JVD. CHEST: No chest wall deformity. LUNGS: Equal air entry with crackles in the left lung. Diminished.. CVS: S1 and S2 normal with no audible murmur, regular rhythm. ABDOMEN: No hepatosplenomegaly, normal bowel sounds, no guarding or rigidity. SPINE: No scoliosis or deformity SKIN: No rashes CENTRAL NERVOUS SYSTEM: No focal deficits, tone is normal in all 4 extremities. EXTREMITIES: There is no peripheral edema. No clubbing, no cyanosis. Peripheral pulses are intact. - Labs CBC & Chem 7: 05/20/17 06:34 05/20/17 00:14 Labs: Abnormal Lab Results - Last 24 Hours (Table) 05/20/17 05/20/17 05/20/17 Range/Units 06:34 16:46 21:27 POC Glucose (mg/dL) 308 H 329 H (75-99) mg/dL Hemoglobin A1c 6.5 H (4.0-6.0) % 05/21/17 05/21/17 Range/Units 06:01 11:30 POC Glucose (mg/dL) 319 H 342 H (75-99) mg/dL Hemoglobin A1c (4.0-6.0) % Assessment and Plan Assessment: Impression: #1 Acute hypoxic respiratory failure secondary to an acute community-acquired pneumonia. #2 Acute anemia of unclear etiology, stool for occult blood negative, status post packed red blood cell transfusion, current hemoglobin 7.6. #3 Chest pain of unclear etiology possibly related to anemia. #4 Chronic and ongoing tobacco dependence, suspect some component of untreated COPD. #5 Diabetes mellitus. #6 Hypertension. #7 Hyperlipidemia. #8 Obesity. #9 Lactic acidosis, recovered. #10 Anxiety/depression. Plan: The patient was seen and evaluated by Dr. Stover. She is stable from the pulmonary standpoint. We'll continue with her current medications. We'll increase her activity as tolerated. We'll repeat her chest x-ray in the a.m. We'll continue to follow. I, the cosigning physician, performed a history & physical examination of the patient. Lungs sounds have few scattered rhonchi more so on the left. Faint end expiratory wheeze.. Maintaining good O2 saturations in the 90s on 2 L/m per nasal cannula.. I discussed the assessment and plan of care with my nurse practitioner, Sanjuana Nieto. I attest to the above note as dictated by her.
--- NOTE | 2017-05-21 12:53 | P.PN ---
Subjective Progress Note Date: 05/21/17 This is a 61-year-old female with history of diabetes, hypertension, hyperlipidemia who went to [facility] for evaluation of symptoms of chest pain and also shortness of breath. She claimed that she has been short of breath for several days prior to admission. She also was noticing pedal edema. She was also complaining of cough and congestion. She was found to be hypoxic. She was treated with with aspirin, bronchodilators, and also IV Solu- Medrol. She also complained of some chest tightness and pain in the shoulder areas in the back. She was subsequently transferred to [facility]. EKG here did not reveal any acute changes. Chest x-ray showed possible infiltrate. She is currently being treated for possible pneumonia. She was also found to be extremely anemic with hemoglobin of 5 g. She received blood transfusion. She is feeling better today. Her proBNP is within normal limits. troponins 0.012, 0.020.echocardiogram with Doppler study remains pending. Objective - Vital Signs Vital signs: Vital Signs Temp 97 F L 05/21/17 08:00 Pulse 76 05/21/17 11:56 Resp 18 05/21/17 08:00 BP 143/64 05/21/17 08:00 Pulse Ox 94 L 05/21/17 08:00 Intake & Output 05/20/17 05/21/17 05/21/17 18:59 06:59 18:59 Intake Total 358 Balance 358 Weight 104.8 kg Intake: Oral 358 Other: Voiding Method Toilet # Voids 1 1 - Exam PHYSICAL EXAMINATION: HEENT: [Head is atraumatic, normocephalic. Pupils equal, round. Neck is supple. There is no elevated jugular venous pressure.] HEART EXAMINATION: [Heart S1, S2 normal. No murmur or gallop heard.] CHEST EXAMINATION:[ Lungs reveal diminished air entry bilaterally. ABDOMEN: [ Soft, nontender. Bowel sounds are heard. No organomegaly noted]. EXTREMITIES:[ 2+ peripheral pulses with no evidence of peripheral edema and no calf tenderness noted]. NEUROLOGIC [patient is awake, alert and oriented -3.] . - Labs CBC & Chem 7: 05/20/17 06:34 05/20/17 00:14 Labs: Abnormal Lab Results - Last 24 Hours (Table) 05/20/17 05/20/17 05/20/17 Range/Units 06:34 16:46 21:27 POC Glucose (mg/dL) 308 H 329 H (75-99) mg/dL Hemoglobin A1c 6.5 H (4.0-6.0) % 05/21/17 05/21/17 Range/Units 06:01 11:30 POC Glucose (mg/dL) 319 H 342 H (75-99) mg/dL Hemoglobin A1c (4.0-6.0) % Assessment and Plan Plan: Assessment and plan #1 pneumonia #2 acute anemia, stool for occult blood negative, status post blood transfusion #3 nicotine dependence #4 COPD # 5 diabetes #6 hypertension #7 hyperlipidemia #8 obesity #9 mildly abnormal troponin of 0.020. plan Cardiology's perspective, we will review the echocardiogram with Doppler study. Continue current medical therapy. Recommend stress test as an outpatient. DNP note has been reviewed, I agree with a documented findings and plan of care. Patient was seen and examined.
--- NOTE | 2017-05-21 14:26 | PN ---
PROGRESS NOTE CHIEF COMPLAINT: Shortness of breath, pneumonitis, sepsis, and anemia. HISTORY OF PRESENT ILLNESS: This lady is doing a bit better. She is not short of breath and she has had no chest pain. PHYSICAL EXAM: CHEST: Clear. Cardiac exam is normal. Abdomen is soft, nontender. IMPRESSION: 1. Shortness of breath. 2. Sepsis. 3. Anemia. PLAN: Workup regarding the anemia is planned and her activity will be increased. MMODL / IJN: [id number] /
[2017-05-21 15:53] LABS: Glucose,Whole Blood 311 mg/dL (75-99)
[2017-05-21 16:58] LABS: Glucose,Whole Blood 309 mg/dL (75-99)
[2017-05-21] MEDS: LINAGLIPTIN 5 MG TABLET PO SCH (17:27)
[2017-05-21] MEDS: PANTOPRAZOLE 40 MG TABLET PO SCH (19:50)
[2017-05-21 21:10] LABS: Glucose,Whole Blood 303 mg/dL (75-99)
[2017-05-21] MEDS: busPIRone HCl 5 MG TAB PO PRN (22:56)
[2017-05-21] MEDS ORDERED: LISINOPRIL 20 MG TAB PO STA (23:40)
[2017-05-22 07:30] LABS: Glucose,Whole Blood 328 mg/dL (75-99)
[2017-05-22 07:31] LABS: Anisocytosis Moderate; Basophils % (A) 0 %; Eosinophils % (A) 0 %; HCT 29.6 % (34.0-46.0); HGB 7.8 gm/dL (11.4-16.0); Hypochromasia Marked; Lymphocytes # (A) 0.7 k/uL (1.0-4.8); Lymphocytes % (A) 7 %; MCH 17.8 pg (25.0-35.0); MCHC 26.3 g/dL (31.0-37.0); MCV 67.6 fL (80.0-100.0); Mean Platelet Volume 6.9; Microcytosis Marked; Monocytes # (A) 0.5 k/uL (0-1.0); Monocytes % (A) 5 %; Neutrophils % (A) 87 %; Platelet Count 383 k/uL (150-450); Poikilocytosis Marked; RBC 4.38 m/uL (3.80-5.40); RDW 21.4 % (11.5-15.5); WBC 10.3 k/uL (3.8-10.6)
[2017-05-22] MEDS: INSULIN ASPART 100 UNIT/ML 1 ML 10 ML VIAL SQ SCH ×5 (07:34→21:12)
[2017-05-22] MEDS: methylPREDNISolone SOD SUCCI 40 MG/ML 1 ML VIAL IV SCH ×2 (07:37→16:36)
[2017-05-22 07:48] LABS: Anion Gap 14 mmol/L; Blood Urea Nitrogen 13 mg/dL (7-17); Calcium 9.7 mg/dL (8.4-10.2); Carbon Dioxide 28 mmol/L (22-30); Chloride 97 mmol/L (98-107); Glucose 297 mg/dL (74-99); Potassium 4.3 mmol/L (3.5-5.1); Sodium 139 mmol/L (137-145)
--- NOTE | 2017-05-22 08:29 | ECHOF ---
Referral Reason:Chest pain and cardiomyopathy MEASUREMENTS -------- HEIGHT: 165.1 cm WEIGHT: 104.3 kg BP: IVSd: 1.5 cm (0.6 - 1.1) LVIDd: 5.5 cm (3.9 - 5.3) LVPWd: 1.1 cm (0.6 - 1.1) IVSs: 1.7 cm LVIDs: 4.2 cm LVPWs: 1.5 cm LAESV Index (A-L): 38.76 ml/m Ao Diam: 3.0 cm (2.0 - 3.7) AV Cusp: 2.3 cm (1.5 - 2.6) LA Diam: 3.5 cm (2.7 - 3.8) MV EXCURSION: 14.056 mm (> 18.000) MV EF SLOPE: 48 mm/s (70 - 150) EPSS: 1.0 cm MV E Thai: 0.97 m/s MV DecT: 177 ms MV A Thai: 0.88 m/s MV E/A Ratio: 1.10 RAP: 5.00 mmHg RVSP: 24.03 mmHg FINDINGS -------- Sinus rhythm. This was a techncally difficult study with suboptimal views, , Lumason utilized for enhancement of im ages. The left ventricular size is normal. There is moderate concentric left ventricular hypertrophy. O verall left ventricular systolic function is normal with, an EF between 55 - 60 %. The right ventricle is normal in size. LA is severely dilated >40 ml/m2 The right atrial size is normal. There is mild aortic valve sclerosis. There is no evidence of aortic regurgitation. Mild mitral regurgitation is present. Mild tricuspid regurgitation present. There is no evidence of pulmonary hypertension. The right v entricular systolic pressure, as measured by Doppler, is 24.03mmHg. The pulmonic valve was not well visualized. The aortic root size is normal. There is no pericardial effusion. CONCLUSIONS -------- 1. This was a techncally difficult study with suboptimal views, , Lumason utilized for enhancement of images. 2. The left ventricular size is normal. 3. There is moderate concentric left ventricular hypertrophy. 4. Overall left ventricular systolic function is normal with, an EF between 55 - 60 %. 5. LA is severely dilated >40 ml/m2 6. 7. There is mild aortic valve sclerosis. 8. Mild tricuspid regurgitation present. 9. There is no evidence of pulmonary hypertension. 10. The right ventricular systolic pressure, as measured by Doppler, is 24.03mmHg. 11. The pulmonic valve was not well visualized. 12. The aortic root size is normal. 13. There is no pericardial effusion. CHIEF ARCHITECT: Jennifer Castro RDCS
--- NOTE | 2017-05-22 08:33 | XR ---
EXAMINATION TYPE: XR chest 2V DATE OF EXAM: 05/22/2017 HISTORY: Follow up pneumonia. REFERENCE: Previous study dated 05/20/2017. FINDINGS: The heart is enlarged. There is vascular congestion and interstitial change. I suspect smal l effusions. IMPRESSION: FINDINGS CONSISTENT WITH CONGESTIVE HEART FAILURE.
[2017-05-22] MEDS: amLODIPine 10 MG TAB PO SCH (09:03)
[2017-05-22] MEDS: NICOTINE 14MG/24HR PATCH TRANSDERM SCH (09:04)
[2017-05-22] MEDS: GABAPENTIN 100 MG CAP PO SCH ×3 (09:04→21:07)
[2017-05-22] MEDS: ESCITALOPRAM 20 MG TAB PO SCH (09:04)
[2017-05-22] MEDS: ATORVASTATIN 20 MG TAB PO SCH (09:04)
[2017-05-22] MEDS: LISINOPRIL 20 MG TAB PO SCH (09:04)
[2017-05-22] MEDS: AZITHROMYCIN 500 MG TAB PO SCH (09:04)
[2017-05-22] MEDS: IPRATROPIUM-ALBUTEROL 3 ML NEB INHALATION SCH ×4 (09:34→20:20)
[2017-05-22] MEDS: BUDESONIDE 1 MG/2 ML NEBU INHALATION SCH ×2 (09:34→20:20)
[2017-05-22 12:25] LABS: Glucose,Whole Blood 353 mg/dL (75-99)
--- NOTE | 2017-05-22 14:30 | P.PN ---
Subjective Progress Note Date: 05/22/17 Principal diagnosis: Acute hypoxic respiratory failure secondary to acute community-acquired pneumonia This is a very pleasant 61-year-old female patient who follows with Dr. Hawk as her primary care physician. She has a history of diabetes mellitus, hypertension, hyperlipidemia, obesity, anxiety, depression, obstructive sleep apnea, gastroesophageal reflux disease. She also has a 50+ year pack per day smoking history. 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 No home oxygen or inhalers. She presented to [facility] emergency room last evening with complaints of a 2 week. Of shortness of breath, cough and congestion. She also developed chest pain 2 hours prior to her arrival. It was substernal anterior chest discomfort that she rated between a 5 and 8 out of 10. She was also found to be hypoxic with a room air oxygen saturation of 85 %. She was quite hypertensive on admission and there is evidence of fluid volume overload. She was initiated on a nitroglycerin drip, given aspirin and bronchodilators and IV Solu-Medrol. She was also found to be severely anemic with a hemoglobin of 5.5 and was started on packed red blood cell transfusion. Stool for occult blood was negative. There was concern regarding endocardial injury based on her EKG no heparin was started because of her anemia. A CT angiogram was performed which revealed evidence of the left lung consolidation. Negative for pulmonary embolism. Based on these multiple issues she was transferred here to the emergency room. She is seen today in consultation while in the ER. She is awake and alert in no acute distress. She states she is feeling much better after her blood transfusions, Xanax and a breathing treatment. She is currently maintaining good O2 saturations up to 99% on 2 L/m per nasal cannula. She's afebrile. Hemodynamically stable. No tachycardia, no tachypnea. Blood pressure 122/59. White count 12.2. Hemoglobin 7.6. Lactic acid improved from 2.2-1.5. ProBNP 547. Troponin 0.020. She has been initiated on ceftriaxone and azithromycin. The patient is seen again today 05/21/2017 in follow-up on the selective care unit. She is awake and alert in no acute distress. She is feeling better today as compared to yesterday. Still with some dyspnea on minimal exertion. Still with some cough and congestion. She has been afebrile. Maintaining good O2 saturations in the mid 90s on 2 L/m per Nasal cannula. She's hemodynamically stable. No tachycardia. No tachypnea. Cultures are pending. Patient was reevaluated today on 05/22/2017, clinically the patient is feeling much better, her chest x-ray continues to show some evidence of increased interstitial markings, but improved compared to her admission chest x-ray. Clinically the patient is much better now compared to how she felt on admission however the patient has been receiving bronchodilators, antibiotics, steroids, and she was transfused for a low hemoglobin with 1 unit of packed RBCs. And her present hemoglobin today is 7.8. Objective - Vital Signs Vital signs: Vital Signs Temp 97.5 F L 05/22/17 08:55 Pulse 71 05/22/17 13:45 Resp 16 05/22/17 13:45 BP 150/70 05/22/17 08:55 Pulse Ox 94 L 05/22/17 08:55 Intake & Output 05/21/17 05/22/17 05/22/17 18:59 06:59 18:59 Intake Total 2458 Output Total 850 850 Balance 1608 -850 Intake: Oral 2458 Output: Urine 850 850 Other: Voiding Method Toilet Toilet # Voids 1 1 - Exam GENERAL EXAM: Alert, comfortable in no apparent distress. HEAD: Normocephalic. EYES: Normal reaction of pupils, equal size. NOSE: Clear with pink turbinates. THROAT: No erythema or exudates. NECK: No masses, no JVD. CHEST: No chest wall deformity. LUNGS: Equal air entry no crackles, no rhonchi, no wheezes were noted. CVS: S1 and S2 normal with no audible murmur, regular rhythm. ABDOMEN: No hepatosplenomegaly, normal bowel sounds, no guarding or rigidity. SPINE: No scoliosis or deformity SKIN: No rashes CENTRAL NERVOUS SYSTEM: No focal deficits, tone is normal in all 4 extremities. EXTREMITIES: There is no peripheral edema. No clubbing, no cyanosis. Peripheral pulses are intact. - Labs CBC & Chem 7: 05/22/17 07:17 05/22/17 07:17 Labs: Abnormal Lab Results - Last 24 Hours (Table) 05/21/17 05/21/17 05/21/17 Range/Units 15:50 16:56 21:10 Hgb (11.4-16.0) gm/dL Hct (34.0-46.0) % MCV (80.0-100.0) fL MCH (25.0-35.0) pg MCHC (31.0-37.0) g/dL RDW (11.5-15.5) % Neutrophils # (1.3-7.7) k/uL Lymphocytes # (1.0-4.8) k/uL Chloride (98-107) mmol/L Creatinine (0.52-1.04) mg/dL Glucose (74-99) mg/dL POC Glucose (mg/dL) 311 H 309 H 303 H (75-99) mg/dL 05/22/17 05/22/17 05/22/17 Range/Units 07:17 07:17 07:27 Hgb 7.8 L (11.4-16.0) gm/dL Hct 29.6 L (34.0-46.0) % MCV 67.6 L (80.0-100.0) fL MCH 17.8 L (25.0-35.0) pg MCHC 26.3 L (31.0-37.0) g/dL RDW 21.4 H (11.5-15.5) % Neutrophils # 9.0 H (1.3-7.7) k/uL Lymphocytes # 0.7 L (1.0-4.8) k/uL Chloride 97 L (98-107) mmol/L Creatinine 0.47 L (0.52-1.04) mg/dL Glucose 297 H (74-99) mg/dL POC Glucose (mg/dL) 328 H (75-99) mg/dL 05/22/17 Range/Units 12:10 Hgb (11.4-16.0) gm/dL Hct (34.0-46.0) % MCV (80.0-100.0) fL MCH (25.0-35.0) pg MCHC (31.0-37.0) g/dL RDW (11.5-15.5) % Neutrophils # (1.3-7.7) k/uL Lymphocytes # (1.0-4.8) k/uL Chloride (98-107) mmol/L Creatinine (0.52-1.04) mg/dL Glucose (74-99) mg/dL POC Glucose (mg/dL) 353 H (75-99) mg/dL Assessment and Plan Assessment: #1 Acute hypoxic respiratory failure secondary to an acute community-acquired pneumonia. #2 Acute anemia of unclear etiology, stool for occult blood negative, status post packed red blood cell transfusion, current hemoglobin 7.8 #3 Chest pain of unclear etiology possibly related to anemia. And possible underlying coronary artery disease. #4 Chronic and ongoing tobacco dependence, suspect some component of untreated COPD. #5 Diabetes mellitus. #6 Hypertension. #7 Hyperlipidemia. #8 Obesity. #9 Lactic acidosis, recovered. #10 Anxiety/depression. Recommendation: Continue bronchodilators, continue antibiotics in the form of Rocephin and Zithromax, continue Lasix 20 mg twice a day, reevaluate chest x- ray and possibly repeat CT of the chest to evaluate the opacity in the left midlung, if not clearing, the patient may have to be eventually considered for bronchoscopy. Time with Patient: Less than 30
[2017-05-22] MEDS: FUROSEMIDE 20 MG TAB PO SCH (14:47)
[2017-05-22 17:27] LABS: Glucose,Whole Blood 345 mg/dL (75-99)
[2017-05-22] MEDS: LINAGLIPTIN 5 MG TABLET PO SCH (17:52)
[2017-05-22 20:46] LABS: Glucose,Whole Blood 371 mg/dL (75-99)
[2017-05-22] MEDS ORDERED: INSULIN DETEMIR 100 UNIT/ML 10 ML VIAL SQ SCH (21:00)
[2017-05-22] MEDS: PANTOPRAZOLE 40 MG TABLET PO SCH (21:07)
[2017-05-22] MEDS: busPIRone HCl 5 MG TAB PO PRN (22:07)
[2017-05-22 22:25] LABS: Glucose,Whole Blood 333 mg/dL (75-99)
[2017-05-23] MEDS: cefTRIAXone IN SWFI 1,000 MG/10 ML SYRINGE IVP SCH (00:09)
[2017-05-23] MEDS: methylPREDNISolone SOD SUCCI 40 MG/ML 1 ML VIAL IV SCH ×2 (00:12→08:14)
[2017-05-23 03:26] LABS: Mycoplasma IgM Antibody 0.86 INDEX (<=0.90)
[2017-05-23 06:02] VITALS: RESP 18
[2017-05-23 07:44] VITALS: TEMP 97.7
[2017-05-23 07:44] LABS: Glucose,Whole Blood 275 mg/dL (75-99)
[2017-05-23] MEDS: GABAPENTIN 100 MG CAP PO SCH (08:07)
[2017-05-23] MEDS: LISINOPRIL 20 MG TAB PO SCH (08:07)
[2017-05-23] MEDS: FUROSEMIDE 20 MG TAB PO SCH (08:07)
[2017-05-23] MEDS: amLODIPine 10 MG TAB PO SCH (08:07)
[2017-05-23] MEDS: AZITHROMYCIN 500 MG TAB PO SCH (08:07)
[2017-05-23] MEDS: ESCITALOPRAM 20 MG TAB PO SCH (08:08)
[2017-05-23] MEDS: ATORVASTATIN 20 MG TAB PO SCH (08:08)
[2017-05-23] MEDS: INSULIN ASPART 100 UNIT/ML 1 ML 10 ML VIAL SQ SCH ×4 (08:10→12:29)
--- NOTE | 2017-05-23 08:13 | XR ---
EXAMINATION TYPE: XR chest 2V DATE OF EXAM: 05/23/2017 COMPARISON: 05/22/2017 HISTORY: 61-year-old female shortness breath, CHF, pneumonia TECHNIQUE: Frontal and lateral views FINDINGS: Heart mildly enlarged. Aorta within normal limits. Diffuse interstitial densities persist. Opacity is somewhat more confluent along the left heart margin. Trace effusions are present. IMPRESSION: Findings suggest CHF with pulmonary vascular congestion and developing interstitial edema at the ling kristin. Trace effusions. Overall findings are stable.
[2017-05-23] MEDS: NICOTINE 14MG/24HR PATCH TRANSDERM SCH (09:00)
[2017-05-23] MEDS: IPRATROPIUM-ALBUTEROL 3 ML NEB INHALATION SCH (09:47)
[2017-05-23] MEDS: BUDESONIDE 1 MG/2 ML NEBU INHALATION SCH (09:47)
[2017-05-23 09:53] VITALS: BP 153/70; PULSE 60
--- NOTE | 2017-05-23 12:12 | P.PN ---
Subjective Progress Note Date: 05/23/17 Principal diagnosis: Acute hypoxic respiratory failure secondary to acute community-acquired pneumonia This is a very pleasant 61-year-old female patient who follows with Dr. Hakw as her primary care physician. She has a history of diabetes mellitus, hypertension, hyperlipidemia, obesity, anxiety, depression, obstructive sleep apnea, gastroesophageal reflux disease. She also has a 50+ year pack per day smoking history. 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 No home oxygen or inhalers. She presented to [facility] emergency room last evening with complaints of a 2 week. Of shortness of breath, cough and congestion. She also developed chest pain 2 hours prior to her arrival. It was substernal anterior chest discomfort that she rated between a 5 and 8 out of 10. She was also found to be hypoxic with a room air oxygen saturation of 85 %. She was quite hypertensive on admission and there is evidence of fluid volume overload. She was initiated on a nitroglycerin drip, given aspirin and bronchodilators and IV Solu-Medrol. She was also found to be severely anemic with a hemoglobin of 5.5 and was started on packed red blood cell transfusion. Stool for occult blood was negative. There was concern regarding endocardial injury based on her EKG no heparin was started because of her anemia. A CT angiogram was performed which revealed evidence of the left lung consolidation. Negative for pulmonary embolism. Based on these multiple issues she was transferred here to the emergency room. She is seen today in consultation while in the ER. She is awake and alert in no acute distress. She states she is feeling much better after her blood transfusions, Xanax and a breathing treatment. She is currently maintaining good O2 saturations up to 99% on 2 L/m per nasal cannula. She's afebrile. Hemodynamically stable. No tachycardia, no tachypnea. Blood pressure 122/59. White count 12.2. Hemoglobin 7.6. Lactic acid improved from 2.2-1.5. ProBNP 547. Troponin 0.020. She has been initiated on ceftriaxone and azithromycin. The patient is seen again today 05/21/2017 in follow-up on the selective care unit. She is awake and alert in no acute distress. She is feeling better today as compared to yesterday. Still with some dyspnea on minimal exertion. Still with some cough and congestion. She has been afebrile. Maintaining good O2 saturations in the mid 90s on 2 L/m per Nasal cannula. She's hemodynamically stable. No tachycardia. No tachypnea. Cultures are pending. Patient was reevaluated today on 05/22/2017, clinically the patient is feeling much better, her chest x-ray continues to show some evidence of increased interstitial markings, but improved compared to her admission chest x-ray. Clinically the patient is much better now compared to how she felt on admission however the patient has been receiving bronchodilators, antibiotics, steroids, and she was transfused for a low hemoglobin with 1 unit of packed RBCs. And her present hemoglobin today is 7.8. Patient was reevaluated today on 05/23/2017, feels great, asymptomatic, no cough no wheezing no shortness of breath. Her vitals are stable and her O2 saturation is 95% on room air. Blood pressure seems to be a bit elevated. All her labs were reviewed and her hemoglobin remains at 7.8, this will need outpatient workup by Dr. Guidry. Chest x-ray which I reviewed myself is definitely showing some improvement compared to the admission chest x-ray. Hence the patient could be discharged home today, and she must have follow-up with me on outpatient basis. I'm still concerned about the possibility of a mass in the left lung, and she would have repeat chest x-ray in my office and possibly repeat CT of the chest on outpatient basis before we decide whether the patient will require bronchoscopy somewhat along the line. Objective - Vital Signs Vital signs: Vital Signs Temp 97.7 F 05/23/17 07:42 Pulse 60 05/23/17 10:03 Resp 18 05/23/17 07:42 BP 153/70 05/23/17 09:53 Pulse Ox 95 05/23/17 07:42 Intake & Output 05/22/17 05/23/17 05/23/17 18:59 06:59 18:59 Intake Total 480 Balance 480 Weight 103.5 kg 101.151 kg Intake: Oral 480 Other: Voiding Method Toilet Toilet # Voids 2 1 - Exam GENERAL EXAM: Alert, comfortable in no apparent distress. HEAD: Normocephalic. EYES: Normal reaction of pupils, equal size. NOSE: Clear with pink turbinates. THROAT: No erythema or exudates. NECK: No masses, no JVD. CHEST: No chest wall deformity. LUNGS: Equal air entry no crackles, no rhonchi, no wheezes were noted. CVS: S1 and S2 normal with no audible murmur, regular rhythm. ABDOMEN: No hepatosplenomegaly, normal bowel sounds, no guarding or rigidity. SPINE: No scoliosis or deformity SKIN: No rashes CENTRAL NERVOUS SYSTEM: No focal deficits, tone is normal in all 4 extremities. EXTREMITIES: There is no peripheral edema. No clubbing, no cyanosis. Peripheral pulses are intact. - Labs CBC & Chem 7: 05/22/17 07:17 05/22/17 07:17 Labs: Abnormal Lab Results - Last 24 Hours (Table) 05/20/17 05/22/17 05/22/17 Range/Units 06:35 12:10 17:24 POC Glucose (mg/dL) 353 H 345 H (75-99) mg/dL Mycoplasma pneumon IgG 1.85 H (<=0.90) INDEX 05/22/17 05/22/17 05/23/17 Range/Units 20:33 22:13 07:36 POC Glucose (mg/dL) 371 H 333 H 275 H (75-99) mg/dL Mycoplasma pneumon IgG (<=0.90) INDEX Microbiology - Last 24 Hours (Table) 05/23/17 10:00 Gram Stain - Preliminary Sputum Sputum Culture - Preliminary Assessment and Plan Assessment: #1 Acute hypoxic respiratory failure secondary to an acute community-acquired pneumonia. #2 Acute anemia of unclear etiology, stool for occult blood negative, status post packed red blood cell transfusion, current hemoglobin 7.8 #3 Chest pain of unclear etiology possibly related to anemia. And possible underlying coronary artery disease. #4 Chronic and ongoing tobacco dependence, suspect some component of untreated COPD. #5 Diabetes mellitus. #6 Hypertension. #7 Hyperlipidemia. #8 Obesity. #9 Lactic acidosis, recovered. #10 Anxiety/depression. Recommendation: Continue present meds, patient could be discharged home on Ceftin, DuoNeb updrafts, prednisone burst and taper, Lasix 20 mg by mouth daily , must have follow-up with me in my office, and based on the follow-up chest x- ray in my office in 2 weeks, we'll decide whether to repeat the CT of the chest or even consider bronchoscopy. Possibility of a mass in the left lung is not entirely ruled out and I was more noted on the CT of the chest itself. Time with Patient: Less than 30
[2017-05-23 12:31] LABS: Glucose,Whole Blood 239 mg/dL (75-99)
--- NOTE | 2017-05-23 14:26 | PN ---
PROGRESS NOTE DATE OF SERVICE: 05/22/2017. CHIEF COMPLAINT: Shortness of breath, anemia, possible sepsis, elevated blood sugars. HISTORY OF PRESENT ILLNESS: This lady is feeling fairly well. We are waiting to see if she is going to be undergoing upper and/or lower GI endoscopies. Blood sugars are elevated. She feels fine otherwise. She is not particularly short of breath. PHYSICAL EXAM: She remains slightly pale. HEENT is normal. Chest is clear. Cardiac exam is normal. The abdomen is soft and nontender. IMPRESSION: 1. Shortness of breath. 2. Anemia. 3. Uncontrolled diabetes. PLAN: Increase insulin management and await decision regarding any further workup having to do with her anemia. Otherwise, she can probably go home soon. MMODL / IJN: [id number] /
--- NOTE | 2017-05-23 19:10 | DS ---
DISCHARGE SUMMARY CHIEF COMPLAINT: Sepsis, shortness of breath, anemia, uncontrolled diabetes. HISTORY OF PRESENT ILLNESS AND PHYSICAL EXAM: The details of this lady's history and physical can be found in the initial workup. LABORATORY STUDIES: While she was in a hospital she had laboratory studies, details of which can be found in the laboratory section of the chart. COURSE IN HOSPITAL: After admission she was placed in bedrest, started on intravenous fluids, and was monitored regarding her anemia. She was seen in consultation by Gastroenterology. It was determined the endoscopies would not be done this time. The balance of her hospitalization was management of her sepsis and it was felt that she could go home on . She will go home on her usual activity about the house and slight increase in her insulin management. She will be seen in the office in a day or two. FINAL DIAGNOSES: 1. Septicemia. 2. Anemia. 3. Uncontrolled diabetes. OPERATIONS: None. CONSULTATIONS: She is improved. ROXY / VADIM: [id number] /
== END 2017-05-23 15:06 | disposition home or self-care (01) | DRG 871 ==
LOC: EC 23:34 → 6SEL 23:56 → 6PED 05-22 00:20
PROVIDERS: ADMIT Family Medicine; ATTEND Family Medicine
PROC: 30230N1 Transfusion of Nonautologous Red Blood Cells into Peripheral Vein, Open Approach (ICD-10-PCS; principal; 2017-05-20)
DX: A41.9 Sepsis, unspecified organism (principal); J96.01 Acute respiratory failure with hypoxia; E87.2 Acidosis; J18.9 Pneumonia, unspecified organism; E11.65 Type 2 diabetes mellitus with hyperglycemia; R65.20 Severe sepsis without septic shock; I10 Essential (primary) hypertension; D64.9 Anemia, unspecified; E78.5 Hyperlipidemia, unspecified; F17.210 Nicotine dependence, cigarettes, uncomplicated; F32.9 Major depressive disorder, single episode, unspecified; F41.9 Anxiety disorder, unspecified; K21.9 Gastro-esophageal reflux disease without esophagitis; E66.9 Obesity, unspecified; G47.33 Obstructive sleep apnea (adult) (pediatric); R91.8 Other nonspecific abnormal finding of lung field; Z68.36 Body mass index [BMI] 36.0-36.9, adult; Z79.82 Long term (current) use of aspirin; Z79.84 Long term (current) use of oral hypoglycemic drugs; Z79.899 Other long term (current) drug therapy; Z90.710 Acquired absence of both cervix and uterus; Z85.820 Personal history of malignant melanoma of skin; Z88.0 Allergy status to penicillin
CPT/HCPCS: 71045; 71046; 74018; 80048; 80053; 82550; 82553; 83036; 83605; 83880; 84484; 85025; 85610; 85730; 86738; 86850; 86900; 86901; 86920; 87070; 87205; 87449; 93005; 93306; 94640; 94760; 96365; 96366; 96374; 96375; 99291